=== PATIENT | female | born 1965 | race African-American/Black ===

== ENCOUNTER → 2016-07-10 | Outpatient (CLI) | payer OTHER ==
--- NOTE | ~2016-07-10 | MY11 ---
[facility] RADIOLOGY TEXT RESULTS PATIENT: CAMELIA KELLEY LOCATION: [facility] : 61 UNIT #: [id number] AGE: [address]: TESS CASON APRN SEX: F ORDER DR: [id number] [facility] [address] [place], [place] [address] [id number] O MR#: [id number] Acc #: [id number] NAME: CAMELIA KELLEY : 1965 SEX: F STUDY DATE/TIME: 07/10/2016 16:04 UNIT: [facility] ROOM: STUDY DESCRIPTION: MY Mammogram Screening Dig Rafael Attending Physician: Gray Cason M.D. Referring Physician: Juve Barnard M.D. Ordering Physician: Gray Cason M.D. Primary Care Physician: Juve Barnard M.D. MEDICAL IMAGING REPORT This report is preliminary unless electronic signature is present EXAM Bilateral Digital Screening Mammogram with CAD 07/10/2016 INDICATION Breast cancer screening. 50-year-old asymptomatic female. No personal or family history of breast cancer. COMPARISON 08/03/2014, 06/22/2013, 04/26/2010 FINDINGS The breast tissue is heterogeneously dense, which could obscure detection of small masses. No suspicious findings are seen. IMPRESSION No mammographic evidence of malignancy. Annual screening mammography and clinical breast exam are recommended. A result letter will be sent to the patient. Patients over the age of 40 are entered into a reminder system with target due date for the next mammogram. BIRADS: 1 Negative Dictated by... Ja Stanley M.D. THIS IS AN ELECTRONICALLY VERIFIED REPORT Ja Stanley M.D. at 07/15/2016 5:46 PM Aquilino TD: 07/11/2016 18:04 [facility] RADIOLOGY TEXT RESULTS PATIENT: CAMELIA KELLEY LOCATION: [facility] : 61 UNIT #: [id number] AGE: [address]: TESS CASON APRN SEX: F ORDER DR: JOB #: [id number] MEDICAL IMAGING REPORT Page 1 of 1 COPY
== END | disposition home or self-care (01) ==
LOC: CWCC 15:57
DX: Z12.31 Encounter for screening mammogram for malignant neoplasm of breast (principal)
CPT/HCPCS: G0202